=== PATIENT | female | born 1970 | race Asian ===

== ENCOUNTER → 2016-10-10 | Outpatient (CLI) | payer BC ==
[~2016-10-10] MED LIST: BCP; OXYC-197 PO; TRAM-42 PO
--- OUTSIDE RECORDS SUMMARY | 2016-10-10 08:53 | XMS REPORT | Continuity of Care Document ---
Author Author [facility] Organization [facility] Address Unknown Phone Unavailable Care Team Providers Care Crossword Puzzle Maker Name Role Phone PIA JAMESON DO PCP Insurance Providers Payer Name Policy Number Subscriber Name Relationship [facility] [id number] Rena Brand 20 Self / Same As Patient Advance Directives Directive Response Recorded Date/Time Advance Directives No 04/07/16 11:54am Resuscitation Status Full Code 04/07/16 11:54am Chief Complaint and Reason for Visit Chief Complaint Abdominal/GI Problems Reason for Visit Cholelithiasis Problems Active Problems Medical Problem Onset Date Status Cholelithiasis Unknown Acute Medications Current Home Medications Medication Dose Units Route Directions Days/Qty Instructions Start Date [Bcp] 04/07/16 Tramadol Hcl 50 Mg 50 Mg Oral Every 4HRS 20 04/07/16 Social History Social History Problem Response Recorded Date/Time Alcohol Use Denies Use 04/07/2016 11:54am Recreational Drug Use No 04/07/2016 11:54am Recent Foreign Travel No 04/07/2016 11:54am Recent Infectious Disease Exposure No 04/07/2016 11:54am Hospitalization with Isolation Denies 04/07/2016 11:54am Smoking Status Never a Smoker 04/07/2016 11:54am Query Response Start Date Stop Date Smoking Status Never a Smoker Hospital Discharge Instructions No hospital discharge instructions. Plan of Care Discharge Date 04/07/16 1:21pm Disposition 01 HOME, SELF-CARE Condition at Discharge Improved Instructions/Education Provided Cholelithiasis (ED) Prescriptions See Medication Section Referrals PIA JAMESON DO - Primary Care Physician KELSEY BRADEN APRN - Primary Care Physician Additional Instructions/Education CLEAR LIQUIDS--WATER, BROTH, JELLO, GATORADE BRATS DIET --BANANAS, RICE, APPLESAUCE, TOAST, SALTINES FOLLOW UP WITH [facility] TOMORROW FOR REFERRAL TO SURGEON All discharge instructions reviewed with patient and/or family. Voiced understanding. Functional Status No functional status results. Allergies, Adverse Reactions, Alerts Unable to obtain allergies. Immunizations No immunization records. Vital Signs Acute Vital Signs Vital Response Date/Time Temperature (Fahrenheit) 96.6 degrees F (97.6 - 99.5) 04/07/2016 11:54am Temperature (Calculated Celsius) 35.08732 degrees C (36.4 - 37.5) 04/07/2016 11:54am Temperature Source Temporal 04/07/2016 11:54am Pulse Rate (adult) 81 bpm (60 - 90) 04/07/2016 1:21pm Respiratory Rate 18 bpm (12 - 24) 04/07/2016 1:21pm O2 Sat by Pulse Oximetry 97 % (88 - 100) 04/07/2016 1:21pm Blood Pressure 143/78 mm Hg 04/07/2016 1:21pm Blood Pressure Mean 105 mm Hg 04/07/2016 11:54am Pain Numeric Pain Scale 0-No Pain 04/07/2016 1:21pm Height (Feet) 5 feet 04/07/2016 11:54am Height (Calculated Centimeters) 152.539852 cm 04/07/2016 11:54am Weight (Pounds) 140 pounds 04/07/2016 11:54am Weight (Calculated Kilograms) 63.648245 kilograms 04/07/2016 11:54am Height 5 ft 0 in Weight 140 lb Body Mass Index 27.3 kg/m^2 Results Pending Laboratory Results Test Name Collection Date/Time Procedures No known history of procedures. Encounters Encounter Location Arrival/Admit Date Discharge/Depart Date Attending Provider Departed Emergency Room [facility] 04/07/16 11:00am 1:21pm STEF MCCRACKEN DO Registered Clinic [facility] 04/04/16 11:59am KELSEY BRADEN APRN Registered Clinic [facility] 03/21/16 7:44am KELSEY BRADEN APRN Registered Clinic [facility] 03/15/16 7:43am KELSEY BRADEN APRN Recent Diagnosis
--- NOTE | 2016-10-10 19:21 | Diagnostic Imaging Report ---
EXAMINATION: Unilateral Diagnostic right mammogram. The screening mammogram performed on 03/15/2016 noted a 6 mm asymmetry along the lateral aspect of the right breast. The subsequent diagnostic mammogram and ultrasound exam of 03/21/2016 failed to show any sign of malignancy. The area in question was to be secondary to superimposition of the dense fibroglandular tissue in the right breast. On this exam, the area of concern appears the same. Consequently, I do feel that this finding is related to fibroglandular tissue and not to an underlying abnormality. The overall appearance of the right breast is stable as well. No new abnormality has developed. IMPRESSION: 1. There is no evidence of malignancy. 2. The patient should have her annual bilateral screening mammogram on schedule in March of this year. ACR BI-RADS Category 1: Negative. Result letter will be mailed to the patient. Note: At least 10% of breast cancer is not imaged by mammography. Dictated by: Dictated on workstation # [id number]
== END ==
LOC: RAD 08:48
PROVIDERS: ATTEND Nurse Practitioner Family
DX: R92.2 Inconclusive mammogram (principal)

== ENCOUNTER → 2017-08-05 | Outpatient (CLI) | payer BC ==
--- NOTE | 2017-08-06 19:28 | Diagnostic Imaging Report ---
Bilateral screening mammogram 2D views with tomosynthesis. The current study was also evaluated with a Computer Aided Detection (CAD) system. INDICATION: Screening. No current complaints stated on the questionnaire. COMPARISON: 10/10/16. FINDINGS: The breasts are composed of heterogeneously dense parenchyma which may decrease mammographic sensitivity. Allowing for technique and positional differences, no suspicious change is seen. IMPRESSION: Dense breasts with no definite change. ACR BI-RADS Category 2: Benign findings. Result letter will be mailed to the patient. Note: At least 10% of breast cancer is not imaged by mammography. Dictated on workstation # [id number]
== END ==
LOC: RAD 14:09
PROVIDERS: ATTEND Nurse Practitioner Family
DX: Z12.31 Encounter for screening mammogram for malignant neoplasm of breast (principal)
CPT/HCPCS: 77067

== ENCOUNTER → 2018-08-28 | Outpatient (CLI) | payer BC ==
[~2018-08-28] MED LIST changes: -OXYC-197 PO; +OXYC1TAB87 PO
--- NOTE | 2018-08-31 09:01 | Diagnostic Imaging Report ---
Indication: Routine screening. Comparison is made with prior mammogram from 08/05/2017 and 03/15/2016. 2-D and 3-D bilateral screening mammography was performed with CAD. Scattered fibroglandular densities are identified bilaterally. The parenchymal pattern is stable. No mass or malignant-appearing microcalcifications are seen. The axillae are unremarkable. Impression: BI-RADS category 1 No mammographic features suspicious for malignancy are identified. ACR BI-RADS Category 1: Negative. Result letter will be mailed to the patient. Note: At least 10% of breast cancer is not imaged by mammography. Dictated by: Dictated on workstation # [id number]
== END ==
LOC: RAD 09:51
PROVIDERS: ATTEND Nurse Practitioner Family
DX: Z12.31 Encounter for screening mammogram for malignant neoplasm of breast (principal)
CPT/HCPCS: 77067

== ENCOUNTER → 2019-08-30 | Outpatient (CLI) | payer BC ==
--- NOTE | 2019-08-30 17:04 | Diagnostic Imaging Report ---
PROCEDURE: US Non-ob pelvis comp/trans. TECHNIQUE: Multiple realtime grayscale images were obtained of the pelvis in various projections endovaginally. Transabdominal imaging was also performed. INDICATION: Enlarged uterus. COMPARISON: None available. FINDINGS: The uterus measures 7.7 x 3.6 x 4.8 cm. No focal uterine mass. Endometrium measures 0.4 cm, which is within normal limits. The bilateral ovaries were unable to be visualized secondary to overlying bowel gas. No abnormal adnexal mass lesion. No significant free fluid. IMPRESSION: Nonvisualization of the bilateral ovaries, though no abnormal adnexal mass lesion was seen. The uterus is grossly unremarkable. Dictated by: Dictated on workstation # [id number]
--- NOTE | 2019-08-31 12:58 | Diagnostic Imaging Report ---
INDICATION: Routine screening. COMPARISON: 08/28/2018 and 08/05/2017. TECHNIQUE: 2D and 3D bilateral screening mammography was performed with CAD. FINDINGS: Both breasts remain heterogeneously dense, limiting the sensitivity of mammography. The parenchymal pattern is stable. No mass or malignant appearing microcalcifications are seen. The axillae are unremarkable. IMPRESSION: No mammographic features suspicious for malignancy are identified. ACR BI-RADS Category 1: Negative. Result letter will be mailed to the patient. Note: At least 10% of breast cancer is not imaged by mammography. Dictated by: Dictated on workstation # [id number]
== END ==
LOC: RAD 14:35
PROVIDERS: ATTEND Nurse Practitioner
DX: Z12.31 Encounter for screening mammogram for malignant neoplasm of breast (principal); Z01.411 Encounter for gynecological examination (general) (routine) with abnormal findings; N85.2 Hypertrophy of uterus
CPT/HCPCS: 76830; 76856; 77067